=== PATIENT | female | born 1945 | race Asian ===

== ENCOUNTER 2016-04-12 18:37 | Inpatient (IN) | payer OTHER ==
[~2016-04-12] VITALS: Ht 157.5 cm; Wt 72.2 kg
[~2016-04-12 18:37] MED LIST: FURO40TA93 PO; GABA300C2 PO; LIPITOR40 MG PO; MECLIZINE12.5 MG PO; MELOXICAM7.5 MG OR; METF500T PO; METOPROLOL25 M1 OR; NOVOLOG MX SC; OMEPRAZOLE20 M2 PO; PLAVIX75 MG PO; PLETAL100 MG PO; SIMV20TA2 PO; SIMV40TA57; [UNRECOGNIZED DRUG - OTHER] SC
[2016-04-12 19:03] LABS: PLATELET COUNT 193 K/uL (152-353)
[2016-04-12 19:04] VITALS: BP 150/59; TEMP 98.4
[2016-04-12 19:16] LABS: POTASSIUM 3.4 mmol/L (3.6-5.2)
[2016-04-13] VITALS (7 sets, daily range): BP systolic 126–172; BP diastolic 43–75; TEMP 97.5–99.6; Ht 157.5 cm; Wt 72.2 kg
--- NOTE | 2016-04-13 02:10 | NUR ---
04/13/16 0000: RECEIVED PT FROM ER BY STRETCHER TO ROOM 1109. PT DROWSEY BUT WILL AROUSE EASILY TO VOICE. ASSISTED PT TO BATHROOM, GAIT SLIGHTLY UNSTEADY. NO DISTRESS NOTED. IV SALINE LOCK TO LEFT AC NO IV FLUIDS INFUSING.
[2016-04-13] MEDS ORDERED: NOVOLOG MX SC (02:56)
[2016-04-13 09:10] LABS: PLATELET COUNT 195 K/uL (152-353)
[2016-04-13 09:24] LABS: POTASSIUM 3.2 mmol/L (3.6-5.2)
--- NOTE | 2016-04-13 23:18 | NUR ---
04/13/162139 BLOOD SUGAR 104.CC
--- NOTE | 2016-04-13 23:30 | NUR ---
04/13/16 BLOOD SUGAR 154.CC
[2016-04-14 04:00] VITALS: BP 145/59; TEMP 97.9
[2016-04-14 05:03] LABS: PLATELET COUNT 178 K/uL (152-353)
[2016-04-14 05:23] LABS: POTASSIUM 3.6 mmol/L (3.6-5.2)
[2016-04-14 07:46] VITALS: BP 168/65; TEMP 98.4
[2016-04-14 11:54] VITALS: BP 159/64; TEMP 98.4
--- NOTE | 2016-04-14 17:38 | NUR ---
IV D/C'd. NO REDNESS OR EDEMA OBSERVED. DISCHARGE INSTRUCTIONS SIGNED AND GIVEN. Pt. EXIT OUT OF FRONT ENTRANCE VIA W/C.
== END 2016-04-14 17:38 | disposition home or self-care (01) | DRG 639 ==
LOC: ED 18:37 → MED/SURG 21:18
PROVIDERS: Emergency Medicine; ADMIT Specialist
DX: E11.649 Type 2 diabetes mellitus with hypoglycemia without coma (principal); R41.82 Altered mental status, unspecified; D57.80 Other sickle-cell disorders without crisis; M15.8 Other polyosteoarthritis; N18.4 Chronic kidney disease, stage 4 (severe)
CPT/HCPCS: 36415; 80048; 80053; 81000; 82948; 83036; 83605; 83735; 84100; 85027; 96361; 96365; 96366; 96372; 96375; 99284; J1815; J7060

== ENCOUNTER 2016-09-09 15:14 | Inpatient (IN) | payer OTHER ==
[~2016-09-09] VITALS: Ht 157.5 cm; Wt 69.1 kg
[2016-09-09 15:30] VITALS: BP 152/54; TEMP 98.8
[2016-09-09 15:51] LABS: PLATELET COUNT 219 K/uL (152-353)
[2016-09-09 17:44] VITALS: BP 148/52; TEMP 98.2; Ht 157.5 cm; Wt 69.1 kg
--- NOTE | 2016-09-09 17:57 | NUR ---
1720- PT TO ROOM 1108 FROM ER. FAMILY AT BS. ORIENTED PT AND FAMILY TO ROOM AND CONTROLS. CALL LIGHT WITHIN REACH AND BED LOW. PT ALERT AND ORIENTED. ASSESSMENT COMPLETE. INSTRUCTED FAMILY TO BRING HOME MEDS [facility] IS CLOSED AT THIS TIME. SON VERBALIZED UNDERSTANDING. IV INTACT AND PATENT TO R FA WITH NS INFUSING AT 83 ML/HR. NAD NOTED AT THIS TIME. WILL MONITOR,
[2016-09-09 18:57] LABS: POTASSIUM 3.6 mmol/L (3.6-5.2)
[2016-09-09 20:00] VITALS: BP 157/60; TEMP 99.2
[2016-09-10] VITALS: BP 156/64; TEMP 99.5
[2016-09-10 04:00] VITALS: BP 162/69; TEMP 99.3
[2016-09-10 04:56] LABS: PLATELET COUNT 217 K/uL (152-353)
[2016-09-10 06:32] LABS: POTASSIUM 3.5 mmol/L (3.6-5.2)
[2016-09-10 07:39] VITALS: BP 166/57; TEMP 99.1
[2016-09-10] MEDS ORDERED: ASPIRIN325 M1 PO (11:40)
[2016-09-10] MEDS ORDERED: METO25TA4 PO (11:42)
[2016-09-10] MEDS ORDERED: RANITIDINE 150150 MG PO (11:44)
[2016-09-10] MEDS ORDERED: INSUINJ47 SC (11:54)
[2016-09-10 12:00] VITALS: BP 159/54; TEMP 99.3
[2016-09-10 16:17] VITALS: BP 145/56; TEMP 99
[2016-09-10 20:00] VITALS: BP 167/67; TEMP 99.5
[2016-09-11 00:18] VITALS: BP 148/66; TEMP 99
[2016-09-11 04:00] VITALS: BP 158/67; TEMP 98.4
[2016-09-11 05:03] LABS: PLATELET COUNT 219 K/uL (152-353)
[2016-09-11 05:24] LABS: POTASSIUM 4.6 mmol/L (3.6-5.2)
[2016-09-11 08:00] VITALS: BP 177/80; TEMP 98.1
[2016-09-11 12:11] VITALS: BP 124/45; TEMP 98.4
[2016-09-11 16:00] VITALS: BP 146/56; TEMP 98.5
[2016-09-11 20:00] VITALS: BP 163/69; TEMP 97.9
[2016-09-12] VITALS: BP 106/67; TEMP 97.9
[2016-09-12 04:00] VITALS: BP 164/70; TEMP 98.2; TEMP 98.4
[2016-09-12 05:09] LABS: POTASSIUM 4.3 mmol/L (3.6-5.2)
[2016-09-12 05:18] LABS: PLATELET COUNT 231 K/uL (152-353)
[2016-09-12 08:00] VITALS: BP 157/73; TEMP 98.3
[2016-09-12 12:00] VITALS: BP 156/53; TEMP 98
[2016-09-12 16:00] VITALS: BP 155/71; TEMP 97.8
[2016-09-12 20:00] VITALS: BP 157/66; TEMP 98.3
[2016-09-13] VITALS: BP 170/77; TEMP 98
[2016-09-13 04:00] VITALS: BP 162/72; TEMP 98
[2016-09-13 06:18] LABS: PLATELET COUNT 222 K/uL (152-353)
[2016-09-13 06:21] LABS: POTASSIUM 4.1 mmol/L (3.6-5.2)
[2016-09-13 08:00] VITALS: BP 179/79; TEMP 97.9
[2016-09-13 11:56] VITALS: BP 168/71; TEMP 98.3
== END 2016-09-13 16:10 | disposition home or self-care (01) | DRG 194 ==
LOC: ED 15:14 → MED/SURG 16:15
PROVIDERS: Emergency Medicine
DX: J18.0 Bronchopneumonia, unspecified organism (principal); N18.4 Chronic kidney disease, stage 4 (severe); I51.7 Cardiomegaly; R09.89 Other specified symptoms and signs involving the circulatory and respiratory systems; D64.89 Other specified anemias; E83.42 Hypomagnesemia; E11.9 Type 2 diabetes mellitus without complications; E03.8 Other specified hypothyroidism; M15.8 Other polyosteoarthritis; I12.9 Hypertensive chronic kidney disease with stage 1 through stage 4 chronic kidney disease, or unspecified chronic kidney disease
CPT/HCPCS: 36415; 80048; 80053; 82948; 83735; 83880; 84443; 85007; 85027; 87040; 87070; 87205; 93005; 94640; 94664; 94760; 96361; 96365; 96366; 96367; 96372; 96374; 96375; J0696; J1815; J1940; J2930

== ENCOUNTER 2016-10-09 08:58 | Outpatient (CLI) | payer OTHER ==
[~2016-10-09 08:58] MED LIST changes: +ASPIRIN325 M1 PO; +INSUINJ47 SC; +METO25TA4 PO; +RANITIDINE 150150 MG PO
[2016-10-09 09:35] LABS: PLATELET COUNT 245 K/uL (152-353)
[2016-10-09 09:55] LABS: POTASSIUM 4.8 mmol/L (3.6-5.2)
== END 2016-10-09 19:07 | disposition home or self-care (01) ==
LOC: LABW 08:58
PROVIDERS: Internal Medicine
DX: E11.9 Type 2 diabetes mellitus without complications (principal)
CPT/HCPCS: 36415; 80053; 80061; 81000; 82043; 82570; 83036; 84443; 85027

== ENCOUNTER 2016-12-02 08:40 | Outpatient (CLI) | payer OTHER ==
[2016-12-02 09:06] LABS: PLATELET COUNT 207 K/uL (152-353)
[2016-12-02 09:17] LABS: POTASSIUM 4.2 mmol/L (3.6-5.2)
== END 2016-12-02 18:54 | disposition home or self-care (01) ==
LOC: LABW 08:40
PROVIDERS: Internal Medicine Nephrology
DX: I12.9 Hypertensive chronic kidney disease with stage 1 through stage 4 chronic kidney disease, or unspecified chronic kidney disease (principal); N18.4 Chronic kidney disease, stage 4 (severe); E11.9 Type 2 diabetes mellitus without complications; R82.99 Other abnormal findings in urine
CPT/HCPCS: 36415; 80053; 80061; 81000; 82306; 82570; 83516; 83970; 84100; 84155; 84165; 84550; 85027; 86255; 87077; 87086; 87088; 87186

== ENCOUNTER 2016-12-13 22:31 | Emergency (ER) | payer OTHER ==
[~2016-12-13] VITALS: Ht 157.5 cm; Wt 66.2 kg
[2016-12-13 23:42] LABS: PLATELET COUNT 270 K/uL (152-353); POTASSIUM 4.1 mmol/L (3.6-5.2)
[2016-12-14 00:36] VITALS: BP 137/90; TEMP 98.8
== END 2016-12-14 00:37 | disposition home or self-care (01) ==
LOC: ED 22:31
PROVIDERS: Family Medicine
DX: N39.0 Urinary tract infection, site not specified (principal); R41.82 Altered mental status, unspecified; N18.9 Chronic kidney disease, unspecified; N28.9 Disorder of kidney and ureter, unspecified
CPT/HCPCS: 36415; 80053; 81000; 85027; 87077; 87086; 87088; 87186; 96361; 96365; 99284; J0696

== ENCOUNTER 2017-01-18 09:11 | Outpatient (CLI) | payer OTHER | END 2017-01-18 10:45 | disposition home or self-care (01) | LOC: US 09:11 | DX: N18.4 Chronic kidney disease, stage 4 (severe) (principal) ==

== ENCOUNTER 2017-03-15 10:22 | Inpatient (IN) | payer OTHER ==
[~2017-03-15] VITALS: Ht 157.5 cm; Wt 75.9 kg
[2017-03-15 10:25] VITALS: BP 109/54; TEMP 97.8
[2017-03-15 11:23] LABS: POTASSIUM 3.6 mmol/L (3.6-5.2)
[2017-03-15 11:25] VITALS: BP 117/48; TEMP 98.3
[2017-03-15 11:40] LABS: PLATELET COUNT 251 K/uL (152-353)
[2017-03-15 15:19] VITALS: BP 125/55; TEMP 98; Ht 157.5 cm; Wt 75.9 kg
[2017-03-15 16:00] VITALS: BP 137/56; TEMP 98
[2017-03-15 20:00] VITALS: BP 141/61; TEMP 99.4
[2017-03-16] VITALS: BP 129/57; TEMP 99.1
[2017-03-16 04:00] VITALS: BP 123/52; TEMP 98.2
[2017-03-16 06:37] LABS: PLATELET COUNT 195 K/uL (152-353)
[2017-03-16 08:00] VITALS: BP 138/51; TEMP 99.2
[2017-03-16 11:47] LABS: PARTIAL THROMBOPLASTIN TIME 32.5 SECONDS (24.5-33.6)
[2017-03-16 12:00] VITALS: BP 160/60; TEMP 98.7
[2017-03-16 16:00] VITALS: BP 170/68; TEMP 97.8
[2017-03-16 20:00] VITALS: BP 183/75; TEMP 100.5
[2017-03-16] MEDS ORDERED: [UNRECOGNIZED DRUG - CODE] PO (21:15)
[2017-03-16] MEDS ORDERED: SIMV40TA57 PO (21:16)
[2017-03-16] MEDS ORDERED: APAP/TRAMADL1 TAB PO (21:18)
[2017-03-16] MEDS ORDERED: OMEPRAZOLE20 M1 PO (21:19)
[2017-03-17] VITALS: BP 117/53; TEMP 98.6
[2017-03-17 04:00] VITALS: BP 117/53; TEMP 98.6
[2017-03-17 06:33] LABS: PLATELET COUNT 204 K/uL (152-353)
[2017-03-17 08:22] VITALS: BP 149/66; TEMP 98.7
[2017-03-17 11:47] VITALS: BP 162/64; TEMP 98.8
[2017-03-17 16:00] VITALS: BP 168/62; TEMP 98.8
[2017-03-17 20:00] VITALS: BP 161/60; TEMP 98.2
[2017-03-18] VITALS: BP 185/81; TEMP 97.6
[2017-03-18 04:00] VITALS: BP 161/60; TEMP 98.2
[2017-03-18 06:24] LABS: POTASSIUM 3.2 mmol/L (3.6-5.2)
[2017-03-18 08:00] VITALS: BP 197/93; TEMP 98.4
[2017-03-18 08:20] LABS: PLATELET COUNT 224 K/uL (152-353)
[2017-03-18 12:00] VITALS: BP 195/91; TEMP 98.3
[2017-03-18 16:00] VITALS: BP 165/76; TEMP 98
== END 2017-03-18 20:40 | disposition short-term general hospital (02) | DRG 194 ==
LOC: ED 10:22 → MED/SURG 11:45
PROVIDERS: Internal Medicine; ADMIT Family Medicine
PROC: 30233N1 Transfusion of Nonautologous Red Blood Cells into Peripheral Vein, Percutaneous Approach (ICD-10-PCS; principal; 2017-03-17)
PROC: 30233N1 Transfusion of Nonautologous Red Blood Cells into Peripheral Vein, Percutaneous Approach (ICD-10-PCS; 2017-03-18)
DX: J16.8 Pneumonia due to other specified infectious organisms (principal); R04.2 Hemoptysis; N18.4 Chronic kidney disease, stage 4 (severe); Z72.0 Tobacco use; R91.8 Other nonspecific abnormal finding of lung field; E11.9 Type 2 diabetes mellitus without complications; J44.9 Chronic obstructive pulmonary disease, unspecified; D57.80 Other sickle-cell disorders without crisis; E03.8 Other specified hypothyroidism; I10 Essential (primary) hypertension
CPT/HCPCS: 36415; 36430; 36600; 80053; 80200; 82805; 82948; 85007; 85027; 85610; 85730; 86480; 86713; 86850; 86900; 86901; 86922; 87040; 87070; 87116; 87205; 87206; 87278; 87804; 93005; 94640; 94664; 94760; 96372; 99284; J1650; J1815; J1956; J2270; J2405; J2543; J3260; J3490; P9016

== ENCOUNTER 2017-03-18 20:55 | Outpatient (CLI) | payer OTHER ==
[~2017-03-18 20:55] MED LIST changes: +APAP/TRAMADL1 TAB PO; +OMEPRAZOLE20 M1 PO; +SIMV40TA57 PO; +[UNRECOGNIZED DRUG - CODE] PO
== END 2017-03-18 22:04 | disposition short-term general hospital (02) ==
LOC: AMB 20:55
DX: J16.8 Pneumonia due to other specified infectious organisms (principal); R04.2 Hemoptysis; N18.4 Chronic kidney disease, stage 4 (severe); Z72.0 Tobacco use; R91.8 Other nonspecific abnormal finding of lung field; E11.9 Type 2 diabetes mellitus without complications; J44.9 Chronic obstructive pulmonary disease, unspecified; D57.80 Other sickle-cell disorders without crisis; E03.8 Other specified hypothyroidism; I10 Essential (primary) hypertension
CPT/HCPCS: A0425; A0427

== ENCOUNTER 2017-04-14 12:36 | Outpatient (CLI) | payer OTHER | END 2017-04-14 12:46 | disposition short-term general hospital (02) | LOC: AMB 12:36 | DX: R10.84 Generalized abdominal pain (principal); R11.2 Nausea with vomiting, unspecified | CPT/HCPCS: A0425; A0427 ==

== ENCOUNTER 2017-04-14 12:46 | Emergency (ER) | payer OTHER ==
[~2017-04-14] VITALS: Ht 157.5 cm; Wt 71.7 kg
[2017-04-14 12:48] VITALS: TEMP 99.3
[2017-04-14 13:48] LABS: PLATELET COUNT 368 K/uL (152-353)
[2017-04-14 13:50] LABS: POTASSIUM 3.5 mmol/L (3.6-5.2)
[2017-04-14 15:15] VITALS: BP 104/70
== END 2017-04-14 15:15 | disposition home or self-care (01) ==
LOC: ED 12:46
PROVIDERS: Family Medicine
DX: R60.0 Localized edema (principal); M79.1 Myalgia; C90.00 Multiple myeloma not having achieved remission; R73.9 Hyperglycemia, unspecified
CPT/HCPCS: 36415; 80048; 85027; 96372; 96374; 96375; 99284; J1170; J1815; J1940

== ENCOUNTER 2017-04-15 09:27 | Emergency (ER) | payer OTHER ==
[~2017-04-15] VITALS: Ht 157.5 cm; Wt 70.3 kg
[2017-04-15 10:10] LABS: PLATELET COUNT 331 K/uL (152-353)
[2017-04-15 13:00] VITALS: TEMP 98.1
[2017-04-15 13:30] VITALS: BP 150/83
== END 2017-04-15 13:45 | disposition home or self-care (01) ==
LOC: ED 09:27
DX: R10.817 Generalized abdominal tenderness (principal); K44.9 Diaphragmatic hernia without obstruction or gangrene
CPT/HCPCS: 36415; 80053; 82150; 83690; 85027; 99283; Q9963

== ENCOUNTER 2017-04-24 17:28 | Outpatient (CLI) | payer OTHER ==
[2017-04-24] MEDS ORDERED: SPIRONOLACT25 MG PO (22:49)
[2017-04-24] MEDS ORDERED: PROM25TA52 PO (23:02)
[2017-04-24] MEDS ORDERED: BENTYL10 MG PO (23:06)
== END 2017-04-24 17:37 | disposition short-term general hospital (02) ==
LOC: AMB 17:28
DX: M79.605 Pain in left leg (principal); M79.604 Pain in right leg
CPT/HCPCS: A0425; A0427

== ENCOUNTER 2017-04-24 17:45 | Inpatient (IN) | payer OTHER ==
[~2017-04-24] VITALS: Ht 157.5 cm; Wt 71.2 kg
[2017-04-24] MEDS ORDERED: SPIRONOLACT25 MG PO (22:49)
[2017-04-24] MEDS ORDERED: PROM25TA52 PO (23:02)
[2017-04-24] MEDS ORDERED: BENTYL10 MG PO (23:06)
[2017-04-24 23:15] VITALS: BP 174/78; TEMP 98.6; Ht 157.5 cm; Wt 71.2 kg
[2017-04-25] VITALS: BP 146/77; TEMP 98.1
[2017-04-25 04:00] VITALS: BP 116/74; TEMP 97.8
--- NOTE | 2017-04-25 04:11 | NUR ---
04/24/17 2150: RECEIVED PT FROM ER BY STRETCHER. PT ADMITTED WITH INTRACTABLE BACK PAIN. 3RD TOE ON RIGHT FOOT NECROTIC. NO DRAINAGE OR ODOR. PT DROWSEY FROM IV INJECTION OF DILAUDID GIVEN IN ER.
[2017-04-25 04:50] LABS: PLATELET COUNT 272 K/uL (152-353)
[2017-04-25 05:01] LABS: POTASSIUM 2.8 mmol/L (3.6-5.2)
[2017-04-25 07:21] VITALS: BP 172/79; TEMP 97.9
--- NOTE | 2017-04-25 07:36 | NUR ---
LABS REPORTED TO DR. BROOKS. NEW ORDERS RECEIVED.
--- NOTE | 2017-04-25 09:49 | NUR ---
1ST UNIT OF BLOOD STARTED. WILL CONTINUE TO MONITOR.
[2017-04-25 12:00] VITALS: BP 118/59; TEMP 98.2
--- NOTE | 2017-04-25 16:00 | NUR ---
2ND UNIT OF BLOOD FINISHED. DR. BROOKS HERE TO SEE PT.
[2017-04-25 16:10] VITALS: BP 140/67; TEMP 98.4
[2017-04-25 19:53] VITALS: BP 133/67; TEMP 98.9
[2017-04-25 22:21] LABS: PLATELET COUNT 255 K/uL (152-353)
[2017-04-25 22:32] LABS: POTASSIUM 3.6 mmol/L (3.6-5.2)
[2017-04-26] VITALS: BP 164/87; TEMP 98.9
[2017-04-26 04:00] VITALS: BP 158/73; TEMP 98.7
[2017-04-26 08:00] VITALS: BP 164/81; TEMP 98
[2017-04-26 10:24] LABS: PLATELET COUNT 272 K/uL (152-353)
[2017-04-26 12:00] VITALS: BP 152/79; TEMP 98.3
[2017-04-26 16:00] VITALS: BP 130/77; TEMP 98
[2017-04-26 20:00] VITALS: BP 159/74; TEMP 98.3
[2017-04-27] VITALS: BP 140/75; TEMP 98.5
[2017-04-27 04:00] VITALS: BP 150/76; TEMP 98.6
[2017-04-27 06:26] LABS: PLATELET COUNT 232 K/uL (152-353)
[2017-04-27 06:34] LABS: POTASSIUM 4.9 mmol/L (3.6-5.2)
[2017-04-27 08:00] VITALS: BP 161/77; TEMP 98.8
[2017-04-27 12:00] VITALS: BP 143/62; TEMP 98.6
[2017-04-27 16:00] VITALS: BP 155/79; TEMP 98.6
[2017-04-27 20:00] VITALS: BP 149/80; TEMP 98.8
[2017-04-28] VITALS: BP 159/78; TEMP 98.6
[2017-04-28 04:00] VITALS: BP 158/78; TEMP 98.8
[2017-04-28 06:16] LABS: PLATELET COUNT 225 K/uL (152-353)
[2017-04-28 06:36] LABS: POTASSIUM 5.6 mmol/L (3.6-5.2)
--- NOTE | 2017-04-28 07:20 | NUR ---
THIGH HIGH KEEGAN HOSE APPLIED. PT TOLERATED PROCECDURE WELL. WILL CONTINUE TO MONITOR.
--- NOTE | 2017-04-28 07:40 | NUR ---
DR RICHARDSON AT TO DISCUSS POC. PT UNDERSTANDS AND COMPLIES TO POC. WILL CONTINUE TO MONITOR.
[2017-04-28 08:00] VITALS: BP 172/83; TEMP 98.7
--- NOTE | 2017-04-28 08:15 | NUR ---
PT VOICES C/O SEVERE PAIN TO HER LOWER BACK, HIPS, AND LEGS. PT WANTS KEEGAN HOSE REMOVED. REQUESTED, KEEGAN HOSE REMOVED. PT REPOSITIONED. PT STATES HER PAIN IS A 10. WILL CHECK TO SEE WHAT PAIN MEDS ARE ORDERED.
--- NOTE | 2017-04-28 10:20 | NUR ---
PT LYING IN BED WITH EYES CLOSED. NAD NOTED. WILL CONTINUE TO MONITOR.
--- NOTE | 2017-04-28 11:20 | NUR ---
ATTEMPTED TO CONTACT PTS ONCOLOGIST DR. PASCUAL. TALKED WITH THE RECEPTIONISTS AND SHE STATES SHE WILL HAVE TO TALK WITH DR. PASCUAL TO SEE WHEN HE COULD RESCHEDULE HER MISSED APPT. RECEPTIONISTS TALKED WITH NURSE PRACTITIONER AND AD OPERATIONS INTERN STATES DR. PASCUAL WILL HAVE TO RESCHEDULE PT. STATES THEY WOULD GIVE ME A CALL BACK WITH APPT.
[2017-04-28 11:55] VITALS: BP 172/88; TEMP 98.9
[2017-04-28 16:00] VITALS: BP 184/90; TEMP 98.8
[2017-04-28 20:00] VITALS: BP 181/93; TEMP 99.5
--- NOTE | 2017-04-28 22:18 | NUR ---
2216PT MOANING OUT IN PAIN, CNA INSTRUCTOR AT BEDSIDE. PT STATES SHE IS HAVING "CONSTANT" PAIN IN HER "HIPS, THIGHS" AND RATES PAIN A "10" ON SCALE OF 0-10. ADX DILAUDID 1MG IVP PRN FOR HER PAIN. WILL CONTINUE TO MONITOR CLOSELY, IV INTACT WITH FLUID ONGOING, RESP RATE NONLABORED, FEET ELEVATED ON PILLOW. RAILS UP X3, CALL LIGHT IN REACH, BED IN LOW POSITION. PT CALLED EMPLOYEE RELATIONS ASSISTANT LIGHT ABOUT HER PAIN.
[2017-04-29] VITALS: BP 187/87; TEMP 98.8
--- NOTE | 2017-04-29 01:25 | NUR ---
04/28/17 AT 2245PT AWAKE WITH NO S/S OF PAIN NOTED AT THIS TIME, DENIES ANY PAIN SINCE ADX OF PRN MEDICATION, WILL MONITOR CLOSELY. IV INTACT WITH FLUID ONGOING, RESP RATE NONLABORED, FEET ELEVATED ON PILLOW, RAILS UP X3, BED IN LOW POSITION, ENCOURAGED TO CALL NEEDED.
[2017-04-29 04:00] VITALS: BP 166/80; TEMP 97.8
--- NOTE | 2017-04-29 04:23 | NUR ---
0418PT JUST PUT ON BEDPAN TO URINATE. NOW C/O CONSTANT PAIN TO LOWER BACK AND THIGHS THAT IS A "9" ON SCALE. ADX DILAUDID 1MG SLOW IVP PRN FOR HER PAIN. IV INTACT TO L FA WITH NS INFUSING AT KVO(30ML/HR) WITH NO PROBLEMS NOTED TO SITE, RESP RATE NONLABORED, DENIES ANY OTHER NEEDS. WILL MONITOR, RAILS UP X3, CALL LIGHT IN REACH, BED IN LOW POSITION, ENCOURAGED TO CALL NEEDED.
--- NOTE | 2017-04-29 06:07 | NUR ---
0450PT RESTING WITH EYES CLOSED, NO S/S OF PAIN OR DISTRESS NOTED, IV INTACT TO L FA WITH FLUID ONGOING, RESP RATE NONLABORED, WILL MONITOR, RAILS UP X3, BED IN LOW POSITION, CALL LIGHT IN REACH.
[2017-04-29 06:14] LABS: POTASSIUM 6.1 mmol/L (3.6-5.2)
[2017-04-29 06:18] LABS: PLATELET COUNT 225 K/uL (152-353)
[2017-04-29 07:51] VITALS: BP 178/89; TEMP 98.5
--- NOTE | 2017-04-29 09:37 | NUR ---
PT GIVEN BED BATH AND NEW LINENS CHANGED AT THIS TIME. PT AMBULATED TO BARB CHAIR AND TOLERATED WELL. PT SITTING UP IN BARB CHAIR AT THIS TIME
--- NOTE | 2017-04-29 10:15 | NUR ---
PT AMBULATED BACK TO BED AT THIS TIME WITH ASSIST FROM STAFF. PT TOLERATED WELL. PT VOICES NO COMPLAINTS AT THIS TIME. WILL CONTINUE TO MONITOR.
--- NOTE | 2017-04-29 10:18 | NUR ---
ATTEMPTED TO CONTACT PT'S ONCOLOGIST DR. PASCUAL OUT OF [place]. NO ANSWER AND LEFT A VOICEMAIL. WILL TRY TO CONTACT AGAIN.
--- NOTE | 2017-04-29 10:48 | NUR ---
ATTEMPTED TO CALL DR. PASCUAL OFFICE IN [place], [place] TO MAKE PT'S ONCOLOGIST APPOINTMENT AND NO ANSWER AND VOICEMAIL LEFT. WILL TRY AGAIN LATER.
--- NOTE | 2017-04-29 11:40 | NUR ---
RECEIVED CALL FROM DR. PASCUAL OFFICE RETURNING PHONE CALL ABOUT PT'S ONCOLOGY APPOINTMENT. PT NOW HAS AN APPOINTMENT WITH DR. PASCUAL IN [place] ON 05/03/17 AT 1:[address] RICHARDSON AND ARLENE (DAUGHTER) WERE ALSO NOTIFIED AT THIS TIME.
[2017-04-29 11:52] VITALS: BP 173/82; TEMP 98.6
[2017-04-29 16:00] VITALS: BP 174/83; TEMP 98.2
[2017-04-29 20:00] VITALS: BP 177/99; TEMP 98.4
[2017-04-30] VITALS: BP 146/64; TEMP 98.3
[2017-04-30 04:00] VITALS: BP 182/98; TEMP 98.2
[2017-04-30 05:40] LABS: POTASSIUM 4.8 mmol/L (3.6-5.2)
[2017-04-30 05:58] LABS: PLATELET COUNT 237 K/uL (152-353)
[2017-04-30 08:10] VITALS: BP 179/97; TEMP 97.9
--- NOTE | 2017-04-30 11:30 | NUR ---
IV D/C'D PER DOCTORS ORDERS. PT D/C'D PER WC TO DAUGHTERS CARE. PT IS IN PAIN BUT ASSURED HER THAT THE P.O. PERCOCET JUST GIVEN WILL BE EFFECTIVE BY THE TIME SHE MAKES IT HOME. PT IS SLOW TO TRANSITION INTO THE VEHICLE. PTS DAUGHTER INFORMED OF ALL D/C ORDERS AND APPOINTMENTS.
== END 2017-04-30 11:10 | disposition home or self-care (01) | DRG 947 ==
LOC: ED 17:45 → MED/SURG 20:22 → ED 21:42 → MED/SURG 04-30 11:10
PROVIDERS: Internal Medicine
PROC: 30233N1 Transfusion of Nonautologous Red Blood Cells into Peripheral Vein, Percutaneous Approach (ICD-10-PCS; principal; 2017-04-25)
DX: G89.3 Neoplasm related pain (acute) (chronic) (principal); D57.819 Other sickle-cell disorders with crisis, unspecified; C90.00 Multiple myeloma not having achieved remission; E87.5 Hyperkalemia; I12.9 Hypertensive chronic kidney disease with stage 1 through stage 4 chronic kidney disease, or unspecified chronic kidney disease; E11.22 Type 2 diabetes mellitus with diabetic chronic kidney disease; N18.3 Chronic kidney disease, stage 3 (moderate); J44.9 Chronic obstructive pulmonary disease, unspecified; E11.40 Type 2 diabetes mellitus with diabetic neuropathy, unspecified; E03.8 Other specified hypothyroidism; E78.00 Pure hypercholesterolemia, unspecified
CPT/HCPCS: 36415; 36430; 80053; 81000; 82306; 82948; 83036; 83735; 85027; 85044; 85651; 86140; 86850; 86900; 86901; 86922; 94760; 96365; 96366; 96372; 96374; 99284; J1170; J1815; J2405; J3490; P9016

== ENCOUNTER 2017-05-18 13:28 | Outpatient (CLI) | payer OTHER ==
[~2017-05-18 13:28] MED LIST changes: +BENTYL10 MG PO; +PROM25TA52 PO; +SPIRONOLACT25 MG PO
== END 2017-05-18 13:41 | disposition short-term general hospital (02) ==
LOC: AMB 13:28
DX: R52 Pain, unspecified (principal); R41.82 Altered mental status, unspecified
CPT/HCPCS: A0425; A0427

== ENCOUNTER 2017-05-18 13:44 | Inpatient (IN) | payer OTHER ==
[2017-05-18] VITALS (19 sets, daily range): BP systolic 106–139; BP diastolic 52–74; TEMP 97.6–98.6; Ht 157.5 cm; Wt 71.7 kg
[~2017-05-18] VITALS: Ht 157.5 cm; Wt 71.7 kg
[2017-05-18 14:35] LABS: PLATELET COUNT 131 K/uL (152-353)
[2017-05-18 14:44] LABS: PARTIAL THROMBOPLASTIN TIME 37.9 SECONDS (24.5-33.6)
[2017-05-18 14:48] LABS: POTASSIUM 3.9 mmol/L (3.6-5.2)
[2017-05-19] VITALS (24 sets, daily range): BP systolic 11–156; BP diastolic 53–81; TEMP 96.8–97.8
[2017-05-19 06:22] LABS: PLATELET COUNT 113 K/uL (152-353)
[2017-05-19 06:47] LABS: POTASSIUM 3.7 mmol/L (3.6-5.2)
[2017-05-20] VITALS (26 sets, daily range): BP systolic 101–134; BP diastolic 43–68; TEMP 97.5–98.5
[2017-05-20 06:22] LABS: POTASSIUM 4.6 mmol/L (3.6-5.2)
[2017-05-20 06:26] LABS: PLATELET COUNT 130 K/uL (152-353)
[2017-05-21] VITALS (24 sets, daily range): BP systolic 77–165; BP diastolic 56–90; TEMP 97.4–98
[2017-05-21 05:18] LABS: PLATELET COUNT 137 K/uL (152-353)
[2017-05-22] VITALS (24 sets, daily range): BP systolic 134–168; BP diastolic 56–111; TEMP 97.8–98.7
[2017-05-22 06:33] LABS: PLATELET COUNT 140 K/uL (152-353)
[2017-05-22 06:49] LABS: POTASSIUM 3.4 mmol/L (3.6-5.2)
[2017-05-23] VITALS (15 sets, daily range): BP systolic 129–175; BP diastolic 61–100; TEMP 97.5–97.8
[2017-05-23 06:22] LABS: PLATELET COUNT 165 K/uL (152-353)
[2017-05-23 06:55] LABS: POTASSIUM 2.4 mmol/L (3.6-5.2)
== END 2017-05-23 16:14 | disposition short-term general hospital (02) | DRG 871 ==
LOC: ED 13:44 → ICU 16:13
PROVIDERS: Internal Medicine; ADMIT Internal Medicine
DX: A41.51 Sepsis due to Escherichia coli [E. coli] (principal); R65.21 Severe sepsis with septic shock; C90.00 Multiple myeloma not having achieved remission; N39.0 Urinary tract infection, site not specified; E87.2 Acidosis; E46 Unspecified protein-calorie malnutrition; N17.9 Acute kidney failure, unspecified; E11.9 Type 2 diabetes mellitus without complications; E83.51 Hypocalcemia; J44.9 Chronic obstructive pulmonary disease, unspecified; R41.0 Disorientation, unspecified; E11.649 Type 2 diabetes mellitus with hypoglycemia without coma; E87.8 Other disorders of electrolyte and fluid balance, not elsewhere classified; D57.80 Other sickle-cell disorders without crisis; I73.89 Other specified peripheral vascular diseases
CPT/HCPCS: 36415; 36600; 51702; 80053; 80202; 81000; 82150; 82310; 82550; 82553; 82805; 82962; 83605; 83690; 83735; 83930; 83970; 84100; 84484; 85027; 85610; 85730; 87040; 87077; 87086; 87088; 87186; 93005; 94664; 94760; 96361; 96365; 96366; 96372; 99285; J0610; J1170; J1650; J1720; J1940; J2185; J2543; J2550; J3370; J3475; J3490; J7060

== ENCOUNTER 2017-05-23 16:15 | Inpatient (IN) | payer OTHER ==
[~2017-05-23] VITALS: Ht 157.5 cm; Wt 57.6 kg
[2017-05-23 22:00] VITALS: BP 165/40; TEMP 97.8
[2017-05-24 00:28] VITALS: BP 165/40; TEMP 97.8; Ht 157.5 cm; Wt 57.6 kg
[2017-05-24 20:00] VITALS: BP 168/84; TEMP 98
[2017-05-25 20:00] VITALS: BP 172/80; TEMP 98.6
[2017-05-26 20:00] VITALS: BP 115/61; TEMP 98.9
[2017-05-27 07:52] VITALS: BP 169/74; TEMP 98.5
[2017-05-27 20:00] VITALS: BP 169/68; TEMP 99
[2017-05-28 08:00] VITALS: BP 166/72; TEMP 98.9
[2017-05-28 19:37] VITALS: BP 108/53; TEMP 99.2
[2017-05-29 07:49] VITALS: BP 165/67; TEMP 98
[2017-05-29 20:00] VITALS: BP 147/64; TEMP 98.7
[2017-05-30 07:48] VITALS: BP 165/70; TEMP 98.5
[2017-05-30 20:00] VITALS: BP 127/69; TEMP 98.8
[2017-05-31 07:39] VITALS: BP 152/60; TEMP 98.7
[2017-05-31 20:00] VITALS: BP 144/65; TEMP 98.3
[2017-06-01 20:21] VITALS: BP 141/57; TEMP 98.6
[2017-06-02 08:02] VITALS: BP 145/66; TEMP 98.8
[2017-06-03 08:00] VITALS: BP 159/78; TEMP 98.8
[2017-06-03 19:44] VITALS: BP 141/57; TEMP 98.5
[2017-06-04 08:00] VITALS: BP 153/71; TEMP 97.6
[2017-06-04 20:00] VITALS: BP 165/67; TEMP 97.8
[2017-06-05 20:00] VITALS: BP 131/54; TEMP 98.4
[2017-06-06 07:28] VITALS: BP 154/67; TEMP 98
[2017-06-07 10:11] VITALS: BP 141/59; TEMP 98.8
== END 2017-06-07 14:45 | disposition home or self-care (01) | DRG 842 ==
LOC: MED/SURG 16:15
DX: C90.00 Multiple myeloma not having achieved remission (principal); K43.9 Ventral hernia without obstruction or gangrene; K66.0 Peritoneal adhesions (postprocedural) (postinfection)
CPT/HCPCS: 82040; 82310; 82948; 84132; 94760; 96372

== ENCOUNTER 2018-06-08 13:57 | Inpatient (IN) | payer OTHER ==
[~2018-06-08] VITALS: Ht 167.6 cm; Wt 58.8 kg
[2018-06-08 14:00] VITALS: BP 149/113; TEMP 98.2
[2018-06-08 14:54] LABS: PLATELET COUNT 308 K/uL (152-353)
[2018-06-08 15:07] LABS: POTASSIUM 5.1 mmol/L (3.6-5.2)
[2018-06-08 16:45] VITALS: BP 161/61; TEMP 97.7
[2018-06-08 18:33] VITALS: BP 161/61; TEMP 97.7; Ht 167.6 cm; Wt 58.8 kg
[2018-06-08] MEDS ORDERED: GABA100C2 PO ×2 (18:46→18:47)
[2018-06-08 20:00] VITALS: BP 145/56; TEMP 98.8
--- NOTE | 2018-06-08 23:20 | NUR ---
18G IV IN R WRIST AREA IS LEAKING FROM INSERTION SITE, SITE D/C AT THIS TIME WITH WHOLE CATH INTACT, BLEEDING STOPPED WITH GAUZED AND TAPED IN PLACE, PT TOLERATED WITH NO PROBLEMS. RESP RATE NONLABORED AND NORMAL, DEPEND DRY, PT DENIES ANY NEEDS, WILL MONITOR CLOSELY, RAILS UP X3, BED IN LOW POSITION, CALL LIGHT IN REACH.
[2018-06-09] VITALS: BP 154/55; TEMP 97.6
[2018-06-09 04:00] VITALS: BP 100/73; TEMP 97.8
[2018-06-09 08:00] VITALS: BP 160/53; TEMP 98.9
[2018-06-09 12:00] VITALS: BP 181/73; TEMP 99.4
[2018-06-09 16:00] VITALS: BP 150/62; TEMP 99.1
[2018-06-09 20:00] VITALS: BP 161/58; TEMP 98.7
[2018-06-10] VITALS: BP 136/73; TEMP 98.5
[2018-06-10 04:00] VITALS: BP 164/78; TEMP 98.2
[2018-06-10 05:44] LABS: PLATELET COUNT 237 K/uL (152-353)
[2018-06-10 06:02] LABS: POTASSIUM 3.9 mmol/L (3.6-5.2)
[2018-06-10 08:00] VITALS: BP 162/64; TEMP 98.1
[2018-06-10 12:00] VITALS: BP 159/61; TEMP 98.1
[2018-06-10 16:00] VITALS: BP 187/67; TEMP 96.3
[2018-06-10 20:00] VITALS: BP 167/54; TEMP 99.2
[2018-06-11 00:06] VITALS: BP 115/74; TEMP 99
[2018-06-11 04:00] VITALS: BP 175/72; TEMP 99.1
[2018-06-11 05:35] LABS: PLATELET COUNT 214 K/uL (152-353)
[2018-06-11 06:02] LABS: POTASSIUM 3.6 mmol/L (3.6-5.2); SODIUM 142 mmol/L (136-145)
[2018-06-11 12:00] VITALS: BP 177/69; TEMP 98.2
--- NOTE | 2018-06-11 13:31 | NUR ---
FAMILY REQUEST TO SPEAK TO UR DEPT ABOUT POSSIBLE FDC PLACEMENT.THE PATIENTS DAUGHTER WAS HER POA BUT HAS . HER THREE SONS ARE IN THE PROCESS OF GETTING POA. THE CHILDREN LIVE OUT OF TOWN AND HAVE ALOT OF CONCERNS WITH MOM LIVING AT HOME BY HERSELF. FAMILY IS CONCERNED THAT THE PATIENT IS NOT EATING AND DRINKING PROPERLY. THEY ARE ALSO CONCERNED WITH HER SAFETY AT HOME DUE TO HEARING DEFICIENT. DUE TO HER DEMENTIA FAMILY HAS CONCERNS IF SHE IS TAKING HER MEDICATIONS PRESCRIBED. WHEN SPEAKING TO THE PATIENT THE VOICE HAS TO BE VERY LOUD OR SHE CAN NOT HEAR. PATIENT HAS MULTIPLE MEDICAL PROBLEMS AND DUE TO SOME ALTERED MENTAL STATUS UPON ADMISSION WAS A VERY POOR HISTORIAN. THE THREE SONS HAVE ASKED FOR THEIR AUNTS AND UNCLES TO ASSIST THEM IN ADDRESSING FDC PLACEMENT. UR DEPT WILL STAY IN TOUCH WITH FAMILY AND THE FAMILY HOPES TO HAVE A DECISION BY WEDNESDAY.
[2018-06-11 16:00] VITALS: BP 186/71; TEMP 98.6
[2018-06-11 20:00] VITALS: BP 195/71; TEMP 98.3
[2018-06-12] VITALS: BP 137/83; TEMP 98.2
[2018-06-12 04:00] VITALS: BP 184/72; TEMP 98.6
[2018-06-12 04:59] LABS: PLATELET COUNT 186 K/uL (152-353)
[2018-06-12 05:08] LABS: POTASSIUM 3.6 mmol/L (3.6-5.2)
[2018-06-12 08:00] VITALS: BP 183/65; TEMP 98.2
[2018-06-12 12:00] VITALS: BP 184/79; TEMP 97.9
--- NOTE | 2018-06-12 13:14 | NUR ---
5749 SON SPOKE WITH PT AGAIN ABOUT USP PLACEMENT. PT BECAME IRRITABLE AND MAD. 1000 PT SON SPOKE WITH ELOISA SOUTH AND STATED " YOU HAVE MY PERMISSION TO DO WHATEVER YOU NEED TO DO" ELOISA SOUTH AND MYSELF WENT TO SPEAK WITH THE PT AGAIN. ELOISA SOUTH EXPLAINED THE REASON FOR THE NEED FOR USP PLACEMENT AND THE SON'S CONCERNS. PT BECAME ILL AND STATED " I AM NOT GOING TO ANY USP, I CAN DO FOR MYSELF, I AM LEAVING HERE. YOU CANNOT KEEP ME HERE." PT WAS REMINDED SHE IS HERE BECAUSE SHE IS SICK AND THAT WE NEED TO CONTINUE TO TREAT HER. PT WAS INFORMED THAT IF SHE TRIED TO LEAVE WE COULD/WOULD NOTIFY THE LAW. PT STILL STATED "YOU CANNOT MAKE ME STAY HERE, I CARE FOR MYSELF ALL THE TIME" ELOISA SOUTH CONSULTED WITH DR. EVANS FOR A 1013. DOCUMENTATION IS COMPLETED. PASSCODE FORM COMPLETED WITH SON.
[2018-06-12 16:00] VITALS: BP 135/78; TEMP 97.6
[2018-06-12 20:00] VITALS: BP 173/73; TEMP 98.1
--- NOTE | 2018-06-12 20:05 | NUR ---
1620 PT OUT TO SMOKE PIT WITH FAMILY MEMBER 1630 PT BACK TO ROOM FROM SMOKE PIT.
[2018-06-13] VITALS: BP 168/70; TEMP 98.2
[2018-06-13 04:00] VITALS: BP 135/57; TEMP 98.3
[2018-06-13 05:50] LABS: PLATELET COUNT 188 K/uL (152-353)
[2018-06-13 06:46] LABS: POTASSIUM 4.1 mmol/L (3.6-5.2)
[2018-06-13 08:00] VITALS: BP 179/76; TEMP 98
[2018-06-13 12:00] VITALS: BP 141/69; TEMP 98.2
[2018-06-13] MEDS ORDERED: AMLODIPINE BESYLATE PO (12:54)
[2018-06-13] MEDS ORDERED: LEVAQUIN250 MG PO (12:58)
--- NOTE | 2018-06-13 15:28 | NUR ---
DISCHARGE INSTRUCTIONS GIVEN TO PT AND FAMILY MEMBER. BOTH VERBALIZED UNDERSTANDING. 22G IV TO THE LFA D/C AT THIS TIME. PT D/C VIA WC
== END 2018-06-13 15:35 | disposition home health service (06) | DRG 689 ==
LOC: ED 13:57 → MED/SURG 15:40
PROVIDERS: Family Medicine; ADMIT Emergency Medicine
DX: N39.0 Urinary tract infection, site not specified (principal); G93.41 Metabolic encephalopathy; E43 Unspecified severe protein-calorie malnutrition; C90.00 Multiple myeloma not having achieved remission; N18.4 Chronic kidney disease, stage 4 (severe); E87.1 Hypo-osmolality and hyponatremia; R53.1 Weakness; B96.20 Unspecified Escherichia coli [E. coli] as the cause of diseases classified elsewhere; E86.0 Dehydration; E11.22 Type 2 diabetes mellitus with diabetic chronic kidney disease; E11.65 Type 2 diabetes mellitus with hyperglycemia; I12.9 Hypertensive chronic kidney disease with stage 1 through stage 4 chronic kidney disease, or unspecified chronic kidney disease; Z79.4 Long term (current) use of insulin; D57.80 Other sickle-cell disorders without crisis; K21.9 Gastro-esophageal reflux disease without esophagitis; E78.49 Other hyperlipidemia; E87.6 Hypokalemia
CPT/HCPCS: 36415; 80053; 81000; 85027; 87077; 87086; 87088; 87186; 93005; 96360; 96361; 96365; 96366; 96367; 99284; J0696; J1650

== ENCOUNTER 2018-07-07 08:48 | Outpatient (CLI) | payer OTHER ==
[~2018-07-07 08:48] MED LIST changes: +AMLODIPINE BESYLATE PO; +GABA100C2 PO; +LEVAQUIN250 MG PO
== END 2018-07-07 19:15 | disposition home or self-care (01) ==
LOC: RESP 08:48
DX: R06.02 Shortness of breath (principal)

== ENCOUNTER 2018-08-01 21:42 | Outpatient (CLI) | payer OTHER ==
[2018-08-01] MEDS ORDERED: METO-837 PO (22:31)
[2018-08-01] MEDS ORDERED: FURO40TA93 PO (22:32)
== END 2018-08-01 21:51 | disposition short-term general hospital (02) ==
LOC: AMB 21:42
DX: R06.02 Shortness of breath (principal)
CPT/HCPCS: A0425; A0427

== ENCOUNTER 2018-08-01 21:55 | Inpatient (IN) | payer OTHER ==
[~2018-08-01] VITALS: Ht 157.5 cm; Wt 51.4 kg
[2018-08-01 21:59] VITALS: BP 140/62; TEMP 97.5
[2018-08-01] MEDS ORDERED: METO-837 PO (22:31)
[2018-08-01] MEDS ORDERED: FURO40TA93 PO (22:32)
[2018-08-01 22:46] LABS: PLATELET COUNT 223 K/uL (152-353)
[2018-08-01 22:47] VITALS: BP 148/64
[2018-08-01 23:04] LABS: POTASSIUM 3.9 mmol/L (3.6-5.2)
[2018-08-01 23:30] VITALS: BP 148/69
[2018-08-02 00:01] VITALS: BP 139/79
[2018-08-02 01:03] VITALS: BP 172/72; TEMP 96.1; Ht 157.5 cm; Wt 51.4 kg
[2018-08-02 04:57] VITALS: BP 170/70; TEMP 94.6
[2018-08-02 19:56] VITALS: BP 158/63; TEMP 98.3
[2018-08-02 23:53] VITALS: BP 153/60; TEMP 98.3
[2018-08-03 04:55] VITALS: BP 167/82; TEMP 96.9
[2018-08-03 05:50] LABS: PLATELET COUNT 189 K/uL (152-353)
[2018-08-03 06:05] LABS: POTASSIUM 3.3 mmol/L (3.6-5.2)
[2018-08-03 08:00] VITALS: BP 177/83; TEMP 96.8
[2018-08-03 12:00] VITALS: BP 158/75; TEMP 96.2
[2018-08-03 16:00] VITALS: BP 170/70; TEMP 96.2
[2018-08-03 20:51] VITALS: BP 198/80; TEMP 96
== END 2018-08-03 20:49 | disposition short-term general hospital (02) | DRG 871 ==
LOC: ED 21:55 → MED/SURG 23:30
PROVIDERS: Emergency Medicine; ADMIT Internal Medicine
DX: A41.89 Other specified sepsis (principal); J18.8 Other pneumonia, unspecified organism; C90.00 Multiple myeloma not having achieved remission; D63.8 Anemia in other chronic diseases classified elsewhere; J44.9 Chronic obstructive pulmonary disease, unspecified; E11.40 Type 2 diabetes mellitus with diabetic neuropathy, unspecified; I10 Essential (primary) hypertension; I73.89 Other specified peripheral vascular diseases; K21.9 Gastro-esophageal reflux disease without esophagitis; M15.8 Other polyosteoarthritis; G89.29 Other chronic pain; E03.8 Other specified hypothyroidism; D57.80 Other sickle-cell disorders without crisis
CPT/HCPCS: 36415; 80053; 80202; 81000; 82550; 82553; 83605; 84484; 85027; 87040; 87077; 87086; 87088; 87185; 87186; 87205; 94640; 94664; 94760; 96365; 96375; 99284; J0456; J0696; J1644; J1885; J1940; J2060; J2175; J2405; J2550; J3370; J3490

== ENCOUNTER 2018-08-03 21:59 | Inpatient (IN) | payer OTHER ==
[~2018-08-03] VITALS: Ht 157.5 cm; Wt 49.0 kg
[~2018-08-03 21:59] MED LIST changes: +METO-837 PO
[2018-08-03 23:41] VITALS: BP 232/101; TEMP 96.4
[2018-08-03 23:55] VITALS: BP 232/101; TEMP 96; Ht 157.5 cm; Wt 49.0 kg
[2018-08-04 08:00] VITALS: BP 151/70; TEMP 96.3
[2018-08-04 12:00] VITALS: BP 129/59; TEMP 96.9
[2018-08-04 16:00] VITALS: BP 127/58; TEMP 96.4
--- NOTE | 2018-08-04 17:30 | NUR ---
HOSPICE NURSE VINITA MEEHAN HERE TO SEE PT. VINITA EXPLAINED TO FAMILY, PT NOT RESPONDING TO TOUCH OR VERBAL. FAMILY VERBALIZES UNDERSTANDING. WILL CONTINUE TO MONITER
--- NOTE | 2018-08-04 18:30 | NUR ---
PT OPENING EYES. PT NOT INTAKING ANYTHING PO. FAMILY AT BS. MOUTHCARE PROVIDED. WILL CONTINUE TO MONITER
[2018-08-04 20:00] VITALS: BP 104/51; TEMP 96.2
--- NOTE | 2018-08-05 04:41 | NUR ---
AGONAL BREATHING AT THIS TIME. SON IN ROOM
--- NOTE | 2018-08-05 05:32 | NUR ---
PT TAKING 10 BREATHS A MINUTE. SON IN ROOM
--- NOTE | 2018-08-05 06:10 | NUR ---
PT'S EYES WIDE OPEN. AGONAL BREATHING. SON IN ROOM
--- NOTE | 2018-08-05 06:37 | NUR ---
AGONAL BREATHING NOTED. PT'S EYES OPEN. INFORMED FAMILY MEMBER THAT NOW WOULD BE A GOOD TIME TO CALL IN THE OTHER FAMILY MEMBERS.
--- NOTE | 2018-08-05 07:24 | NUR ---
0710 CALLED TO ROOM PER PT'S SON. NO RESP AT THIS TIME. NO PULSE AT THIS TIME. BOTH SONS REMAIN AT BS. WILL INFORM MD AND HOSPICE 0713 DR NORBERT RIOSMRTARSHA OF PTS AT THIS TIME. ER PHYSICIAN NOTIFIED AND REQUESTED TO COME PRONOUNCE PT AT THIS TIME.
--- NOTE | 2018-08-05 10:19 | NUR ---
0900 STU FROM HOSPICE HERE AT THIS TIME. WAITING ON FAMILY TO DECIDE ON HOME. 0950 PT'S FAMILY DECIDED ON HOME AND HOME CONTACTED PER VINITA WITH HOSPICE. AWAITING HOME ARRIVAL AT THIS TIME.
--- NOTE | 2018-08-05 10:34 | NUR ---
1034 HOME HERE FOR NODY AT THIS TIME. FAMILY REMAINS AT BS. 3 GOLD RINGS AND ONE SILVER RING RETURNED TO FAMILY AT THIS TIME
--- NOTE | 2018-08-05 11:06 | NUR ---
1105 HOME LEFT WITH PT VIA STRECTHER. LARG AMT OF FAMILY REMAINS WITH PT AT THIS TIME;
== END 2018-08-05 07:09 | disposition expired | DRG 871 ==
LOC: MED/SURG 21:59
PROVIDERS: ADMIT Internal Medicine
DX: A41.89 Other specified sepsis (principal); J18.8 Other pneumonia, unspecified organism; C90.00 Multiple myeloma not having achieved remission; N18.4 Chronic kidney disease, stage 4 (severe); J44.0 Chronic obstructive pulmonary disease with (acute) lower respiratory infection; E11.22 Type 2 diabetes mellitus with diabetic chronic kidney disease; I12.9 Hypertensive chronic kidney disease with stage 1 through stage 4 chronic kidney disease, or unspecified chronic kidney disease; D63.1 Anemia in chronic kidney disease; I73.89 Other specified peripheral vascular diseases; E03.8 Other specified hypothyroidism; D57.80 Other sickle-cell disorders without crisis; R09.02 Hypoxemia; E11.40 Type 2 diabetes mellitus with diabetic neuropathy, unspecified; I46.9 Cardiac arrest, cause unspecified
CPT/HCPCS: 94760